=== PATIENT | male | born 1970 | race American Indian/Alaskan Native ===

== ENCOUNTER 2022-04-29 16:31 | Emergency (ER) | payer OTHER ==
--- NOTE | 2022-04-29 17:42 | Emergency Department Report ---
ED General Adult HPI - General Chief complaint: Weakness Stated complaint: WEAKNESS/CHILLS/FEVER Time Seen by Provider: 04/29/22 17:36 Source: EMS Mode of arrival: Stretcher Limitations: No Limitations - History of Present Illness Initial comments: 52-year-old -[place] male with no reported past medical history presents emerged department complaining of leaving the house this morning have a sudden onset of weakness fatigue presyncope which began to be associated with chest pains and shortness of breath, nonimprovement fashion. 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 Reports no coughing or, hemoptysis, hematemesis, hematochezia. Reports no cardiac history to his knowledge and symptoms appear to be worse with activity and chest pain is worse with palpation and movement. He reports no known contact with coronavirus no foreign travel, no lower extremity swelling, no previous history of any DVT, cardiovascular or pulmonary Severity scale (0 -10): 5 - Related Data Allergies Allergy/AdvReac Type Severity Reaction Status Date / Time No Known Allergies Allergy Verified 04/29/22 16:42 ED Review of Systems ROS: Stated complaint: WEAKNESS/CHILLS/FEVER Other details as noted in HPI Comment: All other systems reviewed and negative ED Past Medical Hx - Past Medical History Previous Medical History?: No ED Physical Exam - General Limitations: No Limitations General appearance: alert, in no apparent distress, other (Appears to be uncomfortable but no respiratory distress is noted) - Head Head exam: Present: atraumatic, normocephalic - Eye Eye exam: Present: normal appearance - ENT ENT exam: Present: mucous membranes moist - Neck Neck exam: Present: normal inspection - Respiratory Respiratory exam: Present: normal lung sounds bilaterally, chest wall tenderness (Chest wall tenderness when palpating along the sternal border). Absent: respiratory distress, wheezes, rales, rhonchi, stridor, accessory muscle use, decreased breath sounds, prolonged expiratory - Cardiovascular Cardiovascular Exam: Present: regular rate, normal rhythm. Absent: systolic murmur, diastolic murmur, rubs, gallop - GI/Abdominal GI/Abdominal exam: Present: soft, normal bowel sounds - Rectal Rectal exam: Present: deferred - Extremities Exam Extremities exam: Present: normal inspection - Back Exam Back exam: Present: normal inspection - Neurological Exam Neurological exam: Present: alert, oriented X3 - Psychiatric Psychiatric exam: Present: normal affect, normal mood - Skin Skin exam: Present: warm, dry, intact, normal color. Absent: rash ED Course Vital Signs 04/29/22 04/29/22 16:42 16:53 Temperature 98.8 F Pulse Rate 83 Respiratory 16 Rate Blood Pressure 112/71 [Left] O2 Sat by Pulse 100 Oximetry ED Medical Decision Making - Lab Data Result diagrams: 04/29/22 19:06 04/29/22 19:06 Critical care attestation.: If time is entered above; I have spent that time in minutes in the direct care of this critically ill patient, excluding procedure time. ED Disposition Clinical Impression: Weakness, Myalgia, TSH deficiency Disposition: HOME / SELF CARE / HOMELESS Is pt being admited?: No Does the pt Need Aspirin: No Condition: Stable Instructions: Hyperthyroidism, Thyroid-Stimulating Hormone Test, Musculoskeletal Pain, Weakness Additional Instructions: Please be sure to obtain another COVID-19 test to ensure that COVID is not also a cooperative issue today and be sure to follow-up with the press tender or internal medicine provider for further evaluation of your TSH depression. Maintain good hydration and take your vitamins and zinc Referrals: PRIMARY CARE, [Primary Care Provider] - 3-5 Days TRISTAN KOHLER MD [Staff Physician] - 3-5 Days ([facility] for further evaluation of your your thyroid. Also be sure to obtain a COVID-19 test)
[2022-04-29] MEDS ORDERED: HYDROcodone/ACETAMINOPHEN 5-325 MG TAB PO STA (17:44)
--- NOTE | 2022-04-29 18:13 | XRay Report ---
CHEST 1 VIEW 04/29/2022 5:54 PM INDICATION / CLINICAL INFORMATION: Weakness. COMPARISON: None available. FINDINGS: SUPPORT DEVICES: None. HEART / MEDIASTINUM: No significant abnormality. LUNGS / PLEURA: No significant pulmonary or pleural abnormality. No pneumothorax. ADDITIONAL FINDINGS: No significant additional findings. IMPRESSION: 1. No acute findings. Signer Name: Herber Lockhart MD Signed: 04/29/2022 6:08 PM Workstation Name: [id number]
[2022-04-29 20:12] LABS: Basophils % (Auto) 0.3 % (0.0-1.8); Eosinophils % (Auto) 0.1 % (0.0-4.3); Hematocrit 38.6 % (35.5-45.6); Hemoglobin 12.8 gm/dl (11.8-15.2); Lymphocytes # (Auto) 0.2 K/mm3 (1.2-5.4); Lymphocytes % (Auto) 3.4 % (13.4-35.0); Mean Corpuscular HGB Conc 33 % (32-34); Mean Corpuscular Volume 83 fl (84-94); Monocytes # (Auto) 0.4 K/mm3 (0.0-0.8); Monocytes % (Auto) 6.8 % (0.0-7.3); Platelet Count 190 K/mm3 (140-440); Red Blood Count 4.64 M/mm3 (3.65-5.03); Red Cell Distribution Width 13.9 % (13.2-15.2)
[2022-04-29 20:36] LABS: Alanine Aminotransferase 15 units/L (7-56); Albumin 4.2 g/dL (3.9-5); BUN/Creatinine Ratio 11; Blood Urea Nitrogen 10 mg/dL (9-20); Hemolysis Index 25
[2022-04-29 21:25] VITALS: BP 117/74
== END 2022-04-29 21:25 | disposition home or self-care (01) ==
LOC: ED 16:31
DX: R53.1 Weakness (principal); M79.10 Myalgia, unspecified site; E51.9 Thiamine deficiency, unspecified
CPT/HCPCS: 36415; 71045; 80053; 84443; 84484; 85025; 99284